=== PATIENT | male | born 1955 | race Two or more races ===

== ENCOUNTER 2020-07-19 11:28 | Emergency (ER) | payer OTHER ==
[~2020-07-19] VITALS: Ht 177.8 cm; Wt 72.6 kg
--- NOTE | 2020-07-19 11:37 | NUR ---
ED Nurse Note: pt JULIET ABRAHAM RA 26 from [facility] s/p fall [employer]. pt sustained a lac to his R eye brow. pt denies any LOC, states that he slipped and fell on the way to the restroom. pt presents with steri-strips to lac.
[2020-07-19 11:41] VITALS: BP 105/86
[2020-07-19] MEDS ORDERED: Tetanus/Diptheria/Pertussis IM ONE (12:00)
--- NOTE | 2020-07-19 12:07 | NUR ---
ED Nurse Note:pt. had ct head done
--- NOTE | 2020-07-19 12:48 | Diagnostic Imaging Report ---
EXAM: CT Head Without Intravenous Contrast CLINICAL HISTORY: FALL TECHNIQUE: Axial computed tomography images of the head/brain without intravenous contrast. CTDI is 53.4 mGy and DLP is 1072.2 mGy-cm. One or more of the following dose reduction techniques were used: automated exposure control, adjustment of the mA and/or kV according to patient size, use of iterative reconstruction technique. COMPARISON: None FINDINGS: Brain: Hypoattenuation in the posterior limb of the left internal capsule may represent chronic small vessel ischemic disease versus age- indeterminate infarct. No intracranial hemorrhage. No extra-axial fluid collection. No mass effect or midline shift. Scattered areas of hypoattenuation in the supratentorial white matter likely represent chronic small vessel ischemic changes. Ventricles and sulci: Prominence of the ventricles and sulci is likely secondary to cerebral volume loss. Bones: Normal. No bony lesion or acute fracture. Subcutaneous tissues: Normal. Sinuses: Mild mucosal thickening in the sphenoid sinuses. Mastoid air cells: Normal. Orbits: Grossly unremarkable. Other: Atherosclerotic calcifications in the intracranial vasculature. Cerumen in the external auditory canals. IMPRESSION: 1. Hypoattenuation in the posterior limb of the left internal capsule may represent chronic small vessel ischemic disease versus age- indeterminate infarct. Further evaluation could be performed with MRI. 2. No acute intracranial hemorrhage. 3. Mild chronic small vessel ischemic changes and cerebral volume loss.
[2020-07-19] MEDS ORDERED: BACITRACIN15 GM TOPIC (14:04)
[2020-07-19] MEDS ORDERED: Bacitracin Oint UD TOPIC ONE (14:15)
[2020-07-19 14:30] VITALS: BP 110/85
[2020-07-19 15:00] VITALS: BP 110/86
[2020-07-19] MEDS ORDERED: Acetaminophen 500mg (ES) tab ORAL ONE (15:00)
--- NOTE | 2020-07-19 15:00 | NUR ---
ED Nurse Note:pt. was picked up by ambulance for transfer back to his SNF, condition is stable
--- NOTE | 2020-07-20 07:54 | Emergency Room Report ---
History of Present Illness General Chief Complaint: Multiple Trauma/Fall Source: Patient, Medical Record Present Illness HPI 64-year-old male presents with laceration above right eyebrow status post fall. Had witnessed fall at longterm facility today. Hit his head. No LOC. Bleeding from right eyebrow laceration. Patient awake alert but nonverbal. No signs of distress on arrival. No other aggravating relieving factors. No other associated symptoms Allergies: Coded Allergies: No Known Allergies (Unverified , 07/19/20) COVID-19 Screening Contact w/high risk pt: No Experienced COVID-19 symptoms?: No COVID-19 Testing performed MUD MIXER: Yes COVID-19 Screening: Negative COVID-19 COVID-19 Testing Source: 07/18/20 Patient History Past Medical History: other - Hypothyroidism Past Surgical History: none Pertinent Family History: none Social History: Denies: smoking, alcohol use, drug use Immunizations: UTD Reviewed Nursing Documentation: PMH: Agreed; PSxH: Agreed Nursing Documentation-PMH Past Medical History: No History, Except For Hx Diabetes: Yes - hypothyroidism Review of Systems All Other Systems: negative except mentioned in HPI Physical Exam Vital Signs Date Time Temp Pulse Resp B/P (MAP) Pulse Ox O2 Delivery O2 Flow Rate FiO2 07/19/20 11:30 98.6 90 16 105/86 (92) 99 Room Air Sp02 EP Interpretation: reviewed, normal General Appearance: no apparent distress, alert, GCS 15, non-toxic Head: normocephalic, other - 3 cm deep laceration above right eyebrow Eyes: bilateral eye normal inspection, bilateral eye PERRL ENT: hearing grossly normal, normal pharynx, no angioedema, normal voice Neck: full range of motion, supple/symm/no masses Respiratory: chest non-tender, lungs clear, normal breath sounds, speaking full sentences Cardiovascular #1: regular rate, rhythm, no edema Cardiovascular #2: 2+ carotid (R), 2+ carotid (L), 2+ radial (R), 2+ radial (L), 2+ dorsalis pedis (R), 2+ dorsalis pedis (L) Gastrointestinal: normal bowel sounds, non tender, soft, non-distended, no guarding, no rebound Rectal: deferred Genitourinary: normal inspection, no CVA tenderness Musculoskeletal: back normal, normal range of motion, gait/station normal, non- tender Neurologic: alert, motor strength/tone normal, oriented x3, sensory intact, responsive, speech normal Psychiatric: judgement/insight normal, memory normal, mood/affect normal, no suicidal/homicidal ideation Reflexes: 3+ bicep (R), 3+ bicep (L), 3+ tricep (R), 3+ tricep (L), 3+ knee (R), 3+ knee (L) Skin: no rash Lymphatic: no adenopathy Procedures Laceration/Wound Repair Laceration/Wound Repair : Consent: Verbal Wound Location: head Wound's Depth, Shape: linear Wound Explored: clean Betadine Prep?: Yes Anesthesia: 1% Lidocaine Wound Debrided: minimal Wound Repaired With: sutures Suture Size/Type: 4:0, proline Layer Closure?: Yes Deep Layer Suture Size/Type: 4:0 Sterile Dressing Applied?: Yes Splint Applied?: No Sling Applied?: No Patient Tolerated: Well Complications: None Medical Decision Making Diagnostic Impression: Primary Impression: Laceration Additional Impression: Fall Qualified Codes: W19.XXXA - Unspecified fall, initial encounter ER Course Hospital Course 64-year-old male presents with bleeding above right eye brow status post fall at longterm facility Differential diagnoses include: skull fx, intracranial injury, concussion Clinical course Patient placed on stretcher. After initial history and physical I ordered CT head and Tdap CT head shows no acute process. Laceration repaired without complication. Dressings applied. Discussed with PMD Dr. Drake and he agrees to discharge. We will arrange transport back to [facility] Diagnosis -laceration, fall Stable and discharged to SNF. Wound care instructions given. Followup with PMD. Return to ED if symptoms recur or worsen CT/MRI/US Diagnostic Results CT/MRI/US Diagnostic Results : Imaging Test Ordered: CT head Impression Procedure: CT Head no Contrast EXAM: CT Head Without Intravenous Contrast CLINICAL HISTORY: FALL TECHNIQUE: Axial computed tomography images of the head/brain without intravenous contrast. CTDI is 53.4 mGy and DLP is 1072.2 mGy-cm. One or more of the following dose reduction techniques were used: automated exposure control, adjustment of the mA and/or kV according to patient size, use of iterative reconstruction technique. COMPARISON: None FINDINGS: Brain: Hypoattenuation in the posterior limb of the left internal capsule may represent chronic small vessel ischemic disease versus age- indeterminate infarct. No intracranial hemorrhage. No extra-axial fluid collection. No mass effect or midline shift. Scattered areas of hypoattenuation in the supratentorial white matter likely represent chronic small vessel ischemic changes. Ventricles and sulci: Prominence of the ventricles and sulci is likely secondary to cerebral volume loss. Bones: Normal. No bony lesion or acute fracture. Subcutaneous tissues: Normal. Sinuses: Mild mucosal thickening in the sphenoid sinuses. Mastoid air cells: Normal. Orbits: Grossly unremarkable. Other: Atherosclerotic calcifications in the intracranial vasculature. Cerumen in the external auditory canals. IMPRESSION: 1. Hypoattenuation in the posterior limb of the left internal capsule may represent chronic small vessel ischemic disease versus age- indeterminate infarct. Further evaluation could be performed with MRI. 2. No acute intracranial hemorrhage. 3. Mild chronic small vessel ischemic changes and cerebral volume loss. Last Vital Signs Date Time Temp Pulse Resp B/P (MAP) Pulse Ox O2 Delivery O2 Flow Rate FiO2 07/19/20 15:00 98.6 84 16 110/86 99 Room Air Status: improved Disposition: SNF Condition: Improved Scripts Bacitracin (Bacitracin) 28.4 Gm Oint...g. 1 APPLIC TOPIC THREE TIMES A DAY, #28.4 GM Prov: Kavin Drew MD 07/19/20 Referrals: Carlos Drake MD (PCP) Patient Instructions: Laceration Care, Adult, [id number] Additional Instructions: have sutures removed in 5-7 days. Kavin Drew MD Jul 20, 2020 07:54
== END 2020-07-19 15:08 ==
LOC: EDBD 11:28 → EMR 11:58
DX: S01.111A Laceration without foreign body of right eyelid and periocular area, initial encounter (principal); Z23 Encounter for immunization; W19.XXXA Unspecified fall, initial encounter; Y92.129 Unspecified place in nursing home as the place of occurrence of the external cause; E03.9 Hypothyroidism, unspecified
CPT/HCPCS: 12013; 70450; 90471; 90715; Z7502; 99284